=== PATIENT | male | born 1965 | race Caucasian/White ===

== ENCOUNTER 2021-02-24 09:36 | Emergency (ER) | payer BC, SELFPAY ==
--- NOTE | ~2021-02-24 | XR_ITS ---
EXAMINATION: XR hand RT min 3V INDICATION: Right hand pain TECHNIQUE: Three views of the right hand are obtained. COMPARISON: None available FINDINGS: There is no fracture, dislocation, or subluxation. The bones, soft tissues, and joint space s are normal. No radiopaque foreign body is identified. IMPRESSION: 1. No acute osseous abnormality. Reviewed, dictated and finalized at location B.
--- NOTE | ~2021-02-24 | CT_ITS ---
EXAMINATION: CT brain wo con DATE: 02/24/2021 10:55 INDICATION: Head laceration. TECHNIQUE: Computed tomography (CT) of the head was performed without intravenous contrast. The mA wa s adjusted according to patient size. Iterative reconstruction technique was employed. The dose-lengt h product was 681.00 mGy-cm. COMPARISON: Sinuses CT 09/26/2012 FINDINGS: There is no intracranial hemorrhage, acute infarction, or abnormal intracranial mass lesion . The ventricles are normal in size. There is mild mucosal thickening in the paranasal sinuses. The o rbits are normal. There are changes of right mastoidectomy. There is a right frontal scalp laceration . IMPRESSION: 1. Normal brain. 2. Right frontal scalp laceration. Reviewed, dictated and finalized at location A.
[2021-02-24 09:40] VITALS: BP 124/88; PULSE 97; RESP 18; O2SAT 95
[2021-02-24] MEDS: HYDROcodone/acetaminophen (*CRX) 5-325 MG TABLET 1 TAB PO (11:02)
[2021-02-24 11:42] VITALS: BP 153/91; PULSE 81; RESP 17; O2SAT 99
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
[2021-02-24] MEDS: TETANUS,DIPHTHERIA,AC PERTUSSIS ADULT (0.5 ML) BOOSTRIX IM (13:04)
== END 2021-02-24 13:10 | disposition home or self-care (01) ==
PROVIDERS: Emergency Provider Emergency Medicine; PCP Family Medicine
DX: S01.111A Laceration without foreign body of right eyelid and periocular area, initial encounter (principal); S60.511A Abrasion of right hand, initial encounter; Z23 Encounter for immunization; V18.4XXA Pedal cycle driver injured in noncollision transport accident in traffic accident, initial encounter; Y93.55 Activity, bike riding
CPT/HCPCS: 12013; 70450; 73130; 90471; 90715; 99284; A9270

== ENCOUNTER 2021-10-07 16:18 | Emergency (ER) | payer BC, SELFPAY ==
--- NOTE | ~2021-10-07 | XR_ITS ---
EXAMINATION: XR finger 4th RT min 2V INDICATION: Right fourth finger pain, initial encounter TECHNIQUE: Four views of the right fourth finger are obtained. COMPARISON: 02/24/2021 FINDINGS: There is an acute, traumatic, comminuted tuft fracture of the fourth distal phalanx. Open f racture is not excluded. The joint spaces are normal. Soft tissue swelling surrounds the fracture. No additional acute osseous abnormality is identified. IMPRESSION: 1. Comminuted tuft fracture of the fifth distal phalanx. Reviewed, dictated and finalized at location F. [employer]
--- NOTE | 2021-10-07 16:28 | ED.UPPEXIN ---
HPI - Extremity Injury (Upper) General Chief Complaint: Extremity Injury, Upper Stated Complaint: rt 4th finger injury Time Seen by Provider: 10/07/21 16:29 Source: patient Mode of arrival: ambulatory Limitations: no limitations History of Present Illness HPI narrative: Sharon is a 56-year-old male patient who ambulated into the [facility]. And he was working on a car and a wrench slipped and smashed his right fourth finger. This incident happened on September 21. Patient treated with reddy tape. Patient states he is having increased pain swelling and redness. MD complaint: injury to: right and finger Related Data Allergies Allergy/AdvReac Type Severity Reaction Status Date / Time No Known Allergies Allergy Mild Verified 10/07/21 16:34 Review of Systems Review of Systems: CONSTITUTIONAL: Denies body aches, fever, chills, or sweats. EYES: Denies visual changes, redness, or discharge. ENT: Denies rhinorrhea, congestion, sore throat, or otalgia. CARDIOVASCULAR: Denies chest pain, palpitations, or edema. RESPIRATORY: Denies cough or dyspnea. GASTROINTESTINAL: Denies abdominal pain, nausea, vomiting, or diarrhea. GENITOURINARY: Denies dysuria or hematuria. SKIN: Denies rash, itching, or wounds. MUSCULOSKELETAL: Denies back pain, joint pain, or myalgia.+ Right fourth finger pain NEUROLOGIC: Denies headache, numbness, tingling, or weakness. PSYCH: Denies depression or anxiety. All systems reviewed & are unremarkable except as noted in HPI and below PMFSH Family History Family History Sibling Family history of multiple sclerosis Mother Carcinoma of colon Family history of malignant neoplasm of breast in first degree relative Social History Social History Smoking status: Never smoker Alcohol intake: former Substance use: never Substance use type: does not use Gender identity (if verbalized by the patient): Male Comments At time of signature, I have reviewed and agree with nursing past medical, surgical, social and family history unless otherwise noted. Please see nursing chart for further information. There is no relevant family history pertinent to the presenting complaint Exam Narrative: GENERAL: Well-appearing, well-nourished, and in no acute distress. HEAD: Normocephalic, atraumatic. EYES: EOMI. No redness or drainage. Conjunctivae normal. ENT: Mucous membranes pink and moist. Nares clear. No rhinorrhea. TMs normal bilaterally. Throat normal. Uvula midline. NECK: Normal AROM. Supple. No lymphadenopathy. CHEST: No respiratory distress. Clear to auscultation. HEART: Regular rate and rhythm. No murmur appreciated. Normal peripheral pulses. ABDOMEN: Soft, nontender, nondistended, normal active bowel sounds. MUSCULOSKELETAL: No bony tenderness. EXTREMITIES: Normal range of motion. No edema. Right fourth finger with mild edema on surrounding nail, mild erythema and warm to touch. Full ROM noted, good capillary refill; healing subungual hematoma noted right fourth finger. SKIN: Warm, dry, no rash. Capillary refill normal. Normal skin turgor. NEURO: No focal deficits. Alert and oriented x3. Gait steady. PSYCH: Normal affect. No signs of depression or anxiety. Course Course Emergency Course: Patient smashed his right fourth finger on September 21 while working on a car. He had a wrench smashed his right fourth finger above the DIP joint. xray of right fourth finger was ordered. Level of Care: Express Care Visit Vital Signs Vital signs: Reviewed. Pt has been instructed to follow up with his PCP regarding his elevated blood pressure today. MDM - Extremity Injury (Upper) [facility] Narrative Medical decision making narrative: Impressions Finger X-Ray 10/07/21 16:44 IMPRESSION: 1. Comminuted tuft fracture of the fifth distal phalanx. Distal finger splint was applied side the right
[2021-10-07 16:30] VITALS: BP 144/82; PULSE 72; RESP 18; TEMP 36.4; O2SAT 97
== END 2021-10-07 17:02 | disposition home or self-care (01) ==
PROVIDERS: Emergency Provider Nurse Practitioner Family; PCP Family Medicine
DX: S62.664A Nondisplaced fracture of distal phalanx of right ring finger, initial encounter for closed fracture (principal); X58.XXXA Exposure to other specified factors, initial encounter; E78.00 Pure hypercholesterolemia, unspecified
CPT/HCPCS: 29130; 73140; 99214; G0463

== ENCOUNTER 2022-03-21 12:21 | Emergency (ER) | payer BC, SELFPAY ==
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
[2022-03-21 12:32] VITALS: BP 150/94; PULSE 73; RESP 16; TEMP 36.4; O2SAT 100
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
== END 2022-03-21 13:07 | disposition home or self-care (01) ==
PROVIDERS: Emergency Provider Nurse Practitioner; PCP Family Medicine
DX: M25.541 Pain in joints of right hand (principal); I10 Essential (primary) hypertension; Z86.16 Personal history of COVID-19
CPT/HCPCS: 73130; 99213; G0463

== ENCOUNTER 2022-10-17 01:02 | Day surgery (SDC) | payer BC, SELFPAY ==
[2022-10-04 12:56] VITALS: BMI 30.6
--- NOTE | 2022-10-16 12:42 | PM.HPGS ---
History of Present Illness History of Present Illness Consent: Risks, benefits, and alternatives have been discussed and questions answered. Patient agrees to proceed with procedure. Chief complaint: neoplasm screening, family hx of colon cancer Narrative: Yoel David is a 57 year old male referred for colon cancer screening. His mother had colon cancer. Review of Systems Review of Systems: All systems reviewed & are unremarkable except as noted in HPI and below PMFSH Past Medical History Medical History Essential hypertension Fatty infiltration of liver Family History Family History Sibling Family history of multiple sclerosis Mother Carcinoma of colon Family history of malignant neoplasm of breast in first degree relative Social History Social History Smoking status: Former smoker Tobacco type: cigarettes Alcohol intake: current Drinks per week: 5 Substance use: never Substance use type: does not use Living arrangements: with family Gender identity (if verbalized by the patient): Male Spiritual care concerns: No Meds Home Medications and Allergies Home Medications Medication Instructions Recorded Confirmed Type atorvastatin 10 mg tablet 10 mg PO DAILY #90 tabs 11/20/21 10/04/22 Rx amlodipine 5 mg tablet 5 mg PO DAILY #30 tabs 08/31/22 10/04/22 Rx Allergies Allergy/AdvReac Type Severity Reaction Status Date / Time No Known Allergies Allergy Mild Verified 10/17/22 08:20 Exam Const: General: alert Orientation/consciousness: patient oriented x3 Resp: Auscultation: clear to auscultation bilaterally Cardio: Rhythm: regular rhythm GI: GI Palp: Yes Soft to palpation and No Tenderness to palpation present (GI) Neuro: General: patient oriented x3 Assessment and Plan Assessment and plan (1) Colon cancer screening: Code(s): Z12.11 - Encounter for screening for malignant neoplasm of colon Status: Acute Assessment and Plan: Colonoscopy with possible biopsy or polypectomy or cautery or injection of substances.
[2022-10-17 08:20] VITALS: BP 137/86; PULSE 91; RESP 18; TEMP 35.8; O2SAT 95
--- NOTE | 2022-10-17 08:20 | P.PNAN_ITS ---
Anes - Initial Pre Proc Eval Procedure: Operation Date: 10/17/22 09:30 Proposed Procedures p Screening Colonoscopy - Polo Borrero MD Date/Time: 10/17/22 08:20 Surgeon: Polo Borrero MD Pre Op Diagnosis: neoplasm screening, family hx of colon cancer Patient Data Age: 57 Gender: M Height: 1.83 m Weight: 102.3 kg Allergies Allergy/AdvReac Type Severity Reaction Status Date / Time No Known Allergies Allergy Mild Verified 10/17/22 08:20 Home Medications Medication Instructions Recorded Confirmed Type atorvastatin 10 mg tablet 10 mg PO DAILY #90 tabs 11/20/21 10/04/22 Rx amlodipine 5 mg tablet 5 mg PO DAILY #30 tabs 08/31/22 10/04/22 Rx Patient hx anesthesia problems: none Family hx anesthesia problems: none Results Review: All pre-operative results and documents have been reviewed as part of the pre- operative evaluation. [facility] Past Medical History Medical History Essential hypertension Fatty infiltration of liver Family History Family History Sibling Family history of multiple sclerosis Mother Carcinoma of colon Family history of malignant neoplasm of breast in first degree relative Social History Social History Smoking status: Former smoker Tobacco type: cigarettes Alcohol intake: current Drinks per week: 5 Substance use: never Substance use type: does not use Living arrangements: with family Gender identity (if verbalized by the patient): Male Spiritual care concerns: No Anes - Eval Final PreProcedure Day of Procedure 10/17/22 08:20 Patient weight: obese Heart: regular rate and rhythm Lungs: clear to auscultation Airway: Mallampati scale class II Neurological: alert and oriented Last oral intake: >/= 8 hours ASA classification: III Emergent: no Anesthetic plan: proceed Anesthesia type and monitoring: general GIVS and standard monitoring Results Review: All pre-operative results and documents have been reviewed as part of the pre- operative evaluation. Informed Consent: The patient's anesthetic plan and its attendant risks and benefits were discussed with the patient/family/POA. Questions were solicited and answers provided to the satisfaction of the patient/family/POA.
[2022-10-17] MEDS: LACTATED RINGERS 1,000 ML 150 ML IV CONT (08:29)
[2022-10-17 09:13] VITALS: BP 123/78; PULSE 83; RESP 16; O2SAT 100
[2022-10-17 09:23] VITALS: BP 112/77; PULSE 76; RESP 16; O2SAT 95
[2022-10-17 09:33] VITALS: BP 110/85; PULSE 84; RESP 22; O2SAT 97
== END 2022-10-17 09:43 | disposition home or self-care (01) ==
PROVIDERS: PCP Family Medicine; Visit Provider Internal Medicine Gastroenterology
PROC: 0DJD8ZZ Inspection of Lower Intestinal Tract, Via Natural or Artificial Opening Endoscopic (ICD-10-PCS; CPT 45378; principal; 2022-10-17 09:30)
DX: Z12.11 Encounter for screening for malignant neoplasm of colon (principal); K57.30 Diverticulosis of large intestine without perforation or abscess without bleeding; Z80.0 Family history of malignant neoplasm of digestive organs; I10 Essential (primary) hypertension; K76.0 Fatty (change of) liver, not elsewhere classified; Z87.891 Personal history of nicotine dependence; E66.9 Obesity, unspecified; Z68.30 Body mass index [BMI] 30.0-30.9, adult
CPT/HCPCS: 45378; J2704; J7120

== ENCOUNTER 2023-06-01 10:37 | Emergency (ER) | payer BC, SELFPAY ==
[2023-06-01 11:12] VITALS: BP 141/80; PULSE 81; RESP 18; TEMP 37.1; O2SAT 97
--- NOTE | 2023-06-01 11:40 | ED.WOUNDLAC ---
HPI - Wound/Laceration General Chief Complaint: Wound/Laceration Stated Complaint: finger laceration Time Seen by Provider: 06/01/23 11:31 Source: patient and RN notes reviewed Mode of arrival: ambulatory Limitations: no limitations History of Present Illness HPI narrative: Patient presents today complaining of a laceration to the tip of his left 2nd finger that occurred approximately 14 hours prior to exam. He cut himself with a utility knife at home. He is not up-to-date on his tetanus vaccine. Reports some mild tingling to the tip of the finger, but denies numbness. Denies pain at rest, but reports 5/10 with any movement of the finger. Denies history of diabetes or any immunosuppression. He is not up-to-date on his tetanus vaccine. Related Data Allergies Allergy/AdvReac Type Severity Reaction Status Date / Time No Known Allergies Allergy Mild Verified 06/01/23 11:36 Review of Systems Review of Systems: CONSTITUTIONAL: Denies body aches, fever, chills, or sweats. EYES: Denies visual changes, redness, or discharge. ENT: Denies rhinorrhea, congestion, sore throat, or otalgia. CARDIOVASCULAR: Denies chest pain, palpitations, or edema. RESPIRATORY: Denies cough or dyspnea. GASTROINTESTINAL: Denies abdominal pain, nausea, vomiting, or diarrhea. GENITOURINARY: Denies dysuria or hematuria. SKIN: Denies rash, itching. + finger laceration MUSCULOSKELETAL: Denies back pain, joint pain, or myalgia. NEUROLOGIC: Denies headache, numbness, tingling, or weakness. PSYCH: Denies depression or anxiety. [facility] Past Medical History Medical History Essential hypertension Fatty infiltration of liver Family History Family History Sibling Family history of multiple sclerosis Family history of deep vein thrombosis Mother Carcinoma of colon Family history of malignant neoplasm of breast in first degree relative Daughter Family history of deep vein thrombosis Social History Social History Smoking status: Former smoker Tobacco type: cigarettes Alcohol intake: current Drinks per week: 5 Substance use: never Substance use type: does not use Living arrangements: with family Occupation/Education: occupation Gender identity (if verbalized by the patient): Male Spiritual care concerns: No Comments At time of signature, I have reviewed and agree with nursing past medical, surgical, social and family history unless otherwise noted. Please see nursing chart for further information. There is no relevant family history pertinent to the presenting complaint Exam Narrative: GENERAL: Well-appearing, well-nourished, and in no acute distress. HEAD: Normocephalic, atraumatic. EYES: EOMI. No redness or drainage. Conjunctivae normal. ENT: Mucous membranes pink and moist. NECK: Normal AROM. CHEST: No respiratory distress. EXTREMITIES: Normal range of motion. No edema. 1 cm partial thickness flap laceration to the tip of the finger that extends 0.3 mm into the fingernail very superficially. No active bleeding. Distal sensation intact. Capillary refill normal. Full range of motion of the finger. SKIN: Warm, dry, no rash. Capillary refill normal. Normal skin turgor. NEURO: No focal deficits. Alert and oriented x3. Gait steady. PSYCH: Normal affect. No signs of depression or anxiety. Course Course Level of Care: Express Care Visit Vital Signs Vital signs: Vital Signs Temperature 98.7 F 06/01/23 11:12 Pulse Rate 81 06/01/23 11:12 Respiratory Rate 18 06/01/23 11:12 Blood Pressure 141/80 H 06/01/23 11:12 Pulse Oximetry 97 06/01/23 11:12 Oxygen Delivery Room Air 06/01/23 11:12 Temperature 98.7 F 06/01/23 11:12 Pulse Rate 81 06/01/23 11:12 Respiratory Rate 18 06/01/23 11:12 Blood Pressure
[2023-06-01] MEDS: TETANUS,DIPHTHERIA,AC PERTUSSIS ADULT (0.5 ML) BOOSTRIX IM (11:44)
== END 2023-06-01 11:45 | disposition home or self-care (01) ==
PROVIDERS: Emergency Provider Nurse Practitioner; PCP Family Medicine
DX: S61.311A Laceration without foreign body of left index finger with damage to nail, initial encounter (principal); W26.0XXA Contact with knife, initial encounter; Z23 Encounter for immunization; I10 Essential (primary) hypertension; K76.0 Fatty (change of) liver, not elsewhere classified; Z87.891 Personal history of nicotine dependence
CPT/HCPCS: 90471; 90715; 99213; G0463

== ENCOUNTER 2023-10-20 10:59 | Emergency (ER) | payer BC, SELFPAY ==
--- NOTE | 2023-10-20 11:11 | ED.MALEGU ---
HPI - Male Genitourinary General Chief complaint: Urogenital-Male Stated complaint: uti symptoms Time Seen by Provider: 10/20/23 11:11 Source: patient Mode of arrival: ambulatory Limitations: no limitations History of Present Illness HPI Narrative: Patient is a 58-year-old male who presents with left-sided flank pain that started this morning. Patient reports nausea but no vomiting. States he has had previous scans that showed small kidney stones but has never had any issues. Denies any fever. States he had normal urine output this morning with no cover change, burning or odor. Has taken ibuprofen for pain Related Data Allergies Allergy/AdvReac Type Severity Reaction Status Date / Time No Known Allergies Allergy Mild Verified 10/20/23 11:17 Review of Systems Review of Systems: All systems reviewed & are unremarkable except as noted in HPI and below Constitutional: Constitutional: Denies chills, Denies fever(s), Denies headache(s), Denies malaise and Denies weakness Eyes: Eyes: Denies change in vision, Denies eye discharge and Denies irritation ENT: Denies otalgia, Denies headache(s), Denies nasal congestion, Denies nasal discharge, Denies sinus pain and Denies sore throat Cardiovascular: Cardiovascular: Denies chest pain, Denies edema, Denies palpitations and Denies dyspnea Respiratory: Respiratory: Denies cough and Denies dyspnea Gastrointestinal: Gastrointestinal: Denies abdominal pain, Denies diarrhea, Denies nausea and Denies vomiting Genitourinary: Genitourinary: Denies hematuria, Denies dysuria, Reports flank pain and Denies urinary urgency Musculoskeletal: Musculoskeletal: Denies back pain and Denies numbness Integumentary/Breasts: Skin/Breast: Denies pruritus and Denies rash Neurologic: Denies headache(s), Denies numbness and Denies weakness Psychiatric: Psychiatric: Reports no additional psychiatric complaints Endocrine: Endocrine: Denies palpitations PMFSH Past Medical History Medical History Essential hypertension Fatty infiltration of liver Family History Family History Sibling Family history of multiple sclerosis Family history of deep vein thrombosis Mother Carcinoma of colon Family history of malignant neoplasm of breast in first degree relative Daughter Family history of deep vein thrombosis Social History Social History Smoking status: Former smoker Tobacco type: cigarettes Alcohol intake: current Drinks per week: 5 Substance use: never Substance use type: does not use Living arrangements: with family Occupation/Education: occupation Gender identity (if verbalized by the patient): Male Spiritual care concerns: No Comments At time of signature, agree with nursing past medical, surgical, social and family history. There is no relevant family history pertinent to the presenting complaint. Exam Const: General: cooperative, healthy appearing, comfortable, no acute distress and well nourished Nutritional Appearance: well nourished Orientation/consciousness: patient oriented x3 HENMT: Head: normocephalic and atraumatic Ears: external ears normal Face/Nose/Sinus: Normal external nose present, Normal nares present and normal facial exam Face and sinus: normal facial exam Eyes: General: appearance normal, both eyes and all related structures Pupils: Equal, round and reactive pupils present EOM: EOMs intact bilaterally Neck: Neck: normal visual inspection, full ROM and supple Chest: Chest palpation & inspection: normal inspection of the chest Resp: Effort & Inspection: normal respiratory effort and able to speak in complete sentences Cardio: Rate: regular rate Rhythm: regular rhythm GI: Inspection: normal to inspection GI Palp: No abdominal tenderness and Yes Soft to palpation : Genera
[2023-10-20 11:13] VITALS: BP 169/90; PULSE 75; RESP 18; TEMP 36.3; O2SAT 99
== END 2023-10-20 11:34 | disposition short-term general hospital (02) ==
PROVIDERS: Emergency Provider Nurse Practitioner Family; PCP Family Medicine
DX: R10.9 Unspecified abdominal pain (principal); R11.0 Nausea; Z87.891 Personal history of nicotine dependence; I10 Essential (primary) hypertension; K76.0 Fatty (change of) liver, not elsewhere classified
CPT/HCPCS: 99212; G0463

== ENCOUNTER 2023-10-20 11:47 | Emergency (ER) | payer BC, SELFPAY ==
--- NOTE | ~2023-10-20 | CT_ITS ---
EXAMINATION: CT abdomen pelvis wo con DATE: 10/20/2023 12:41 INDICATION: Left flank pain. TECHNIQUE: Computed tomography (CT) of the abdomen and pelvis was performed without intravenous contr ast. Automated exposure control and iterative reconstruction technique were employed. Exam dose: 106 7.65 mGy-cm total exam DLP. COMPARISON: 06/12/2018 CT abdomen FINDINGS: Mild bilateral lower lobe atelectasis. Right lower lobe calcified pulmonary granulomas. Heart size is within normal range. No pericardial or pleural effusion. There is patchy hepatic steatosis no hepatic space-occupying mass lesion is evident. No gallstones or gallbladder wall thickening or pericholecystic fluid or fat stranding are evident in this CT examina tion. Ultrasound is more sensitive for detection of gallstones. No pancreatic mass lesion or calcification. No bile duct or pancreatic duct dilatation. Normal spleni c size. Normal morphology of the adrenal glands. Approximately 4 mm calculus is present at the very proximal left ureter, causing moderately prominent left hydronephrosis. There is prominent left perinephric stranding and fluid and thickening of the a nterior and posterior pararenal fascia. An approximately 2 mm lower pole nonobstructing calculus and 2.7 mm nonobstructing mid left renal sandra culus are noted. Approximately 6 small nonobstructing right renal calculi are noted, the largest approximately 3.2 mm. There is prominence of the right renal pelvis without obstructing calculus; this may be due to ureter opelvic disproportion, less likely neoplasm. The urinary bladder is essentially unremarkable. Moderate prostate enlargement, prostate calcificatio ns. Minimal atherosclerotic calcification of the abdominal aorta. No abdominal aortic aneurysm. No intrap eritoneal or retroperitoneal or pelvic mass lesion or adenopathy or ascites. Diverticulosis of sigmoid, descending and transverse colon; no CT evidence of diverticulitis Normal appendix. No bowel obstruction, bowel wall thickening, pneumatosis or intraperitoneal free air . No suspicious osteolytic or osteoblastic lesions are noted. 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 Reviewed, dictated and finalized at [facility]. GER HI IMPRESSION: Approximately 4 mm obstructing proximal left ureteral calculus wit h moderately prominent left nephrosis and prominent perinephric stranding and f luid and thickening of anterior and posterior pararenal fascia Bilateral nonobstructive nephrolithiasis Prominent right renal pelvis which may be due to ureteropelvic disproportion; m ost likely urothelial malignancy Diverticulosis of the colon; no evidence of diverticulitis Normal appendix Hepatic steatosis
[2023-10-20 11:47] VITALS: BP 187/94; PULSE 74; RESP 20; TEMP 36.6; O2SAT 99
[2023-10-20 11:59] VITALS: BP 195/115; PULSE 75; RESP 18; O2SAT 100
--- NOTE | 2023-10-20 12:02 | ED.GENADULT ---
HPI - General Adult General Chief complaint: Back Pain/Injury <GABE Mejia Last Filed: 10/20/23 14:24> Stated complaint: BACK PAIN THIS AM <GABE Mejia Last Filed: 10/20/23 14:24> Time Seen by Provider: 10/20/23 11:57 <Dequan Kearns PA-C - Last Filed: 10/20/23 14:24> Source: patient <GABE Mejia Last Filed: 10/20/23 14:24> Mode of arrival: ambulatory <GABE Mejia Last Filed: 10/20/23 14:24> Limitations: no limitations <GABE Mejia Filed: 10/20/23 14:24> History of Present Illness HPI narrative: this is a 58-year-old female who presents to the ED after referral from urgent care with chief complaint of left flank pain beginning rather suddenly this morning after waking up. Reports that the pain stays in the left flank area. It is severe hand causing him to feel nauseous. He has not vomited. Denies any urinary troubles lately. Denies any history of kidney stones. States he has history of lower back pain with bulging discs but this feels different. Denies fevers, chills or any further complaint. Denies injuries. <Dequan Kearns PA-C - Last Filed: 10/20/23 14:24> Related Data Allergies/adverse reactions: Allergies Allergy/AdvReac Type Severity Reaction Status Date / Time No Known Allergies Allergy Mild Verified 10/20/23 11:17 <Dequan Kearns PA-C - Last Filed: 10/20/23 14:24> Review of Systems Review of Systems: All systems as dictated in HPI <GABE Mejia Last Filed: 10/20/23 14:24> [facility] Past Medical History Medical History: Medical History Essential hypertension Fatty infiltration of liver <GABE Mejia Last Filed: 10/20/23 14:24> Family History Family History: Family History Sibling Family history of multiple sclerosis Family history of deep vein thrombosis Mother Carcinoma of colon Family history of malignant neoplasm of breast in first degree relative Daughter Family history of deep vein thrombosis <Dequan Kearns PA-C - Last Filed: 10/20/23 14:24> Social History Social History: Social History Smoking status: Former smoker Tobacco type: cigarettes Alcohol intake: current Drinks per week: 5 Substance use: never Substance use type: does not use Living arrangements: with family Occupation/Education: occupation Gender identity (if verbalized by the patient): Male Spiritual care concerns: No <Dequan Kearns PA-C - Last Filed: 10/20/23 14:24> Exam Narrative: GENERAL: Writhing in the bed. Cannot find a comfortable position. HEAD: Normocephalic, atraumatic. EYES: PERRLA and EOMI. ENT: Nares clear, no rhinorrhea or epistaxis. Mucous membranes moist. Oropharynx without tonsillar hypertrophy exudate or other lesions. NECK: Supple. No adenopathy or masses. CHEST: No respiratory distress. Clear to auscultation. No wheezes rales or rhonchi HEART: Regular rate and rhythm. No murmur heard. Normal peripheral pulses. ABDOMEN: left flank tenderness present. Negative right flank tenderness. Soft, otherwise nontender, nondistended, normal active bowel sounds. MSK: Normal range of motion. No edema. SKIN: Warm, dry, no rash. NEURO: Alert and oriented x3. No focal deficits. PSYCH: Normal mood and affect. 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 <Ann Reese MD - Last Filed: 10/20/23 15:11> Vital Signs Vital signs: Vital Signs Temperature 98 F 10/20/23 11:47 Pulse Rate 74 10/20/23 11:47 Respiratory Rate 20 10/20/23 11:47 Blood Pressure 187/94 H 10/20/23 11:47 Pulse Oximetry 99 10/20/23 1
[2023-10-20] MEDS: SODIUM CHLORIDE 0.9% IV 1,000 ML 999 ML IV CONT (12:29)
[2023-10-20 12:30] LABS: Basophils Percent Auto 0.2 % (0.2-1.2); Eosinophils Percent Auto 0.1 % (0-4.4); Hematocrit 44.9 % (42.0-52.0); Hemoglobin 15.2 g/dL (14.0-18.0); Immature Granulocyte Absolute 0.05 K/mm3 (0.00-0.031); Immature Granulocyte Percent A 0.4 % (0-0.5); Lymphocytes Absolute Auto 1.09 K/mm3 (0.9-3.2); Mean Corpuscular HGB Conc 33.9 g/dl (32-36); Mean Corpuscular Hemoglobin 31.6 pg (26-34); Mean Corpuscular Volume 93.3 fl (80-100); Mean Platelet Volume 10.4 fl (7.4-10.4); Monocytes Absolute Auto 0.7 K/mm3 (0.1-0.6); Monocytes Percent Auto 5.9 % (2.6-8.5); Neutrophils Absolute Auto 10.2 K/mm3 (1.3-6.7); Neutrophils Percent Auto 84.4 % (45.5-73.1); Platelet Count Result 272 k/mm3 (150-375); Red Blood Count 4.81 M/mm3 (4.6-6.20); Red Cell Distribution Width 12.7 % (11.5-14.5); White Blood Count 12.1 K/mm3 (4.5-10.0)
[2023-10-20] MEDS: HYDROmorphone HCL INJ (*CRX) 1 MG/ML SYR 0.5 MG IV PUSH (12:30)
[2023-10-20] MEDS: ONDANSETRON INJ 4 MG/2 ML VIAL IV PUSH (12:30)
[2023-10-20 12:32] VITALS: BP 194/99; PULSE 88; RESP 17; O2SAT 96
--- NOTE | 2023-10-20 12:34 | PC.NURSE ---
Pt to CT scan via stretcher at this time, fluids infusing. Unable to void for u/a, given urinal and is requesting more time to try. Hydrating currently.
[2023-10-20 12:43] LABS: Alanine Aminotransferase 56 U/L (6-50); Albumin Level 4.3 g/dL (3.5-5.1); Alkaline Phosphatase 44 U/L (38-126); Anion Gap 9 mmol/L (8-16); Aspartate Amino Transferase 39 U/L (17-59); Bilirubin,Total 0.6 mg/dL (0.2-1.3); Blood Urea Nitrogen 19 mg/dL (9-20); Calcium 9.7 mg/dL (8.4-10.2); Carbon Dioxide 26 mmol/L (22-30); Chloride 104 mmol/L (98-107); Estimated CRCL calculation 77 ml/min; Estimated Glomerular Filt Rate > 60; Glucose 148 mg/dL (65-110); Potassium 4.2 mmol/L (3.4-5.0); Sodium 139 mmol/L (137-145)
[2023-10-20 13:24] LABS: Add Urine Microscopic? YES; Appearance Urine Clear (Clear); Bacteria Urine None Seen /hpf; Bilirubin Urine Negative (Negative); Blood Urine 2+ (Negative); Color Urine Yellow (Yellow); Glucose Urine UA Negative (Negative); Ketones Urine Negative (Negative); Leukocyte Esterase Ur Negative LEU/UL (Negative); Nitrate Urine Negative (Negative); Non Pathogenic Casts 0-2; Protein Urine Negative (Negative); Squamous Epithelial Cell Urine None seen /hpf (Few); Urobilinogen Urine 0.2 mg/dL (<2.0); WBC Urine 0-5 /hpf; pH Urine 5.5 (5.0-9.0)
== END 2023-10-20 14:47 | disposition home or self-care (01) ==
PROVIDERS: Emergency Provider Physician Assistant; PCP Family Medicine
DX: N13.2 Hydronephrosis with renal and ureteral calculous obstruction (principal); I10 Essential (primary) hypertension; K76.0 Fatty (change of) liver, not elsewhere classified; Z87.891 Personal history of nicotine dependence; R93.41 Abnormal radiologic findings on diagnostic imaging of renal pelvis, ureter, or bladder; K57.90 Diverticulosis of intestine, part unspecified, without perforation or abscess without bleeding
CPT/HCPCS: 36415; 74176; 80053; 81001; 85025; 96361; 96374; 96375; 99284; J1170; J2405; J7030

== ENCOUNTER 2023-10-22 16:03 | Emergency (ER) | payer BC, SELFPAY ==
[2023-10-22 16:32] VITALS: BP 162/88; PULSE 99; RESP 20; TEMP 36.4; O2SAT 98
[2023-10-22 16:54] LABS: Basophils Percent Auto 0.1 % (0.2-1.2); Eosinophils Absolute Auto 0.1 K/mm3 (0-0.3); Eosinophils Percent Auto 0.5 % (0-4.4); Hematocrit 42.7 % (42.0-52.0); Hemoglobin 14.5 g/dL (14.0-18.0); Immature Granulocyte Absolute 0.06 K/mm3 (0.00-0.031); Immature Granulocyte Percent A 0.4 % (0-0.5); Lymphocytes Absolute Auto 1.15 K/mm3 (0.9-3.2); Lymphocytes Percent Auto 8.1 % (18.3-44.2); Mean Corpuscular Hemoglobin 31.6 pg (26-34); Mean Platelet Volume 10.2 fl (7.4-10.4); Monocytes Absolute Auto 1.8 K/mm3 (0.1-0.6); Monocytes Percent Auto 12.6 % (2.6-8.5); Neutrophils Absolute Auto 11.1 K/mm3 (1.3-6.7); Neutrophils Percent Auto 78.3 % (45.5-73.1); Platelet Count Result 248 k/mm3 (150-375); Red Blood Count 4.59 M/mm3 (4.6-6.20); Red Cell Distribution Width 12.5 % (11.5-14.5); White Blood Count 14.2 K/mm3 (4.5-10.0)
[2023-10-22 16:57] LABS: Appearance Urine Clear (Clear); Bacteria Urine None Seen /hpf; Bilirubin Urine Negative (Negative); Blood Urine 3+ (Negative); Color Urine Yellow (Yellow); Glucose Urine UA Negative (Negative); Ketones Urine Negative (Negative); Leukocyte Esterase Ur Trace LEU/UL (Negative); Nitrate Urine Negative (Negative); Non Pathogenic Casts 0-2; Protein Urine Negative (Negative); Specific Grav Ur 1.008 (1.001-1.035); Squamous Epithelial Cell Urine None seen /hpf (Few); Urobilinogen Urine 0.2 mg/dL (<2.0); WBC Urine 0-5 /hpf
[2023-10-22 17:03] LABS: Add Urine Microscopic? YES
[2023-10-22 17:07] LABS: Alanine Aminotransferase 36 U/L (6-50); Albumin Level 4.5 g/dL (3.5-5.1); Alkaline Phosphatase 44 U/L (38-126); Anion Gap 8 mmol/L (8-16); Aspartate Amino Transferase 26 U/L (17-59); Bilirubin,Total 1.4 mg/dL (0.2-1.3); Blood Urea Nitrogen 19 mg/dL (9-20); Calcium 8.9 mg/dL (8.4-10.2); Carbon Dioxide 35 mmol/L (22-30); Chloride 91 mmol/L (98-107); Estimated CRCL calculation 76 ml/min; Estimated Glomerular Filt Rate > 60; Glucose 134 mg/dL (65-110); Potassium 3.9 mmol/L (3.4-5.0); Sodium 134 mmol/L (137-145)
--- NOTE | 2023-10-22 17:51 | PC.NURSE ---
pt states is feeling much better since he was able to void. pt decided to go home. encouraged to follow up with pmd.
== END 2023-10-22 17:51 | disposition left against medical advice (07) ==
PROVIDERS: Emergency Provider Emergency Medicine; PCP Family Medicine
DX: R33.9 Retention of urine, unspecified (principal)
CPT/HCPCS: 36415; 80053; 81001; 85025; 99199

== ENCOUNTER → 2023-11-29 07:47 | Outpatient (CLI) | payer BC, SELFPAY ==
--- NOTE | ~2023-11-29 | XR_ITS ---
EXAMINATION: XR abdomen/kub 1V DATE: 11/29/2023 08:18 INDICATION: Kidney stone. TECHNIQUE: A supine view of the abdomen on 2 radiographs was obtained. COMPARISON: CT abdomen and pelvis 10/20/2023 FINDINGS: There is a 3 mm stone in right kidney. The kidneys are obscured by bowel. There are no dila husam loops of bowel. IMPRESSION: 1. 3 mm stone in right kidney. Reviewed, dictated and finalized at location [facility]. 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
--- NOTE | ~2023-11-29 | US_ITS ---
EXAMINATION: US retroperitoneal comp DATE: 11/29/2023 08:16 INDICATION: Kidney stones TECHNIQUE: Multiple ultrasound grayscale images of the kidneys were obtained. COMPARISON: CT dated 10/23/2023 FINDINGS: The right kidney measures 13.7 x 6.1 x 8.0 cm. The left kidney measures 13.6 x 7.4 x 7.2 cm. The kidn eys demonstrate normal echogenicity. 6.8 x 5.5 x 3.8 cm and 3.1 x 2.3 x 2.3 cm anechoic parapelvic cy sts at the right kidney. The recent prior hydronephrosis in the left kidney has resolved. There is no hydronephrosis in either kidney. No echogenic and shadowing renal stones identified. The bladder is normal. IMPRESSION: 1. Interval resolution of prior left hydronephrosis. 2. A couple large peripelvic cysts at the right renal hilum with no right-sided hydronephrosis. Reviewed, dictated and finalized at location [facility]. 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
== END ==
PROVIDERS: PCP Family Medicine; Visit Provider Urology
DX: N20.0 Calculus of kidney (principal)
CPT/HCPCS: 74018; 76770

== ENCOUNTER 2025-03-15 17:25 | Outpatient (CLI) | payer BC, SELFPAY ==
--- NOTE | ~2025-03-15 | XR_ITS ---
Exam: Abdomen 1V HISTORY: F/U FOR KIDNEY STONE/RIGHT FLANK PAIN COMPARISON: 11/29/2023. Reference is made to a CT examination of the abdomen and pelvis dated 10/20/2023 TECHNIQUE: Supine images of the abdomen FINDINGS: Bowel gas pattern is non-obstructive. There is no free air or deep sulci. Bilateral renal shadows are obscured by overlying bowel gas Lung bases are unremarkable. Bones and soft tissues are unremarkable. IMPRESSION: Nonspecific, nonobstructive bowel gas pattern. Bilateral renal shadows are obscured by overlying bowel gas Reviewed, dictated and finalized at location [facility].
== END 2025-03-15 17:26 | disposition home or self-care (01) ==
PROVIDERS: PCP Family Medicine; Visit Provider Urology
DX: N20.0 Calculus of kidney (principal)
CPT/HCPCS: 74018

== ENCOUNTER 2025-03-23 16:55 | Outpatient (CLI) | payer BC, SELFPAY ==
--- NOTE | ~2025-03-23 | US_ITS ---
EXAM: RENAL ULTRASOUND HISTORY: Kidney stone COMPARISON: 11/29/2023 FINDINGS: RIGHT KIDNEY: 15.3 x 8 x 7.4 cm. The parenchyma of the right kidney is unremarkable in echogenicity. Redemonstration of a parapelvic cyst measuring 7.7 x 4.1 x 4.8 cm (measuring as a single parapelvic cyst rather than 2 separate parapelvic cysts as detected on prior examination. No hydronephrosis or renal calculi are present. LEFT KIDNEY: 12.4 x 6.4 x 4.9 cm No hydronephrosis or renal calculi. The parenchyma of the left kidney is unremarkable in echogenicity. BLADDER: Distended with bilateral ureteral jets identified. IMPRESSION: No hydronephrosis or renal calculi. Right-sided parapelvic cysts, as detailed above. Reviewed, dictated and finalized at location A.
== END 2025-03-23 16:56 | disposition home or self-care (01) ==
PROVIDERS: PCP Family Medicine; Visit Provider Urology
DX: N20.0 Calculus of kidney (principal)
CPT/HCPCS: 76770